=== PATIENT | female | born 1965 | race Two or more races ===

== ENCOUNTER 2022-03-09 11:32 | Emergency (ER) | payer OTHER ==
[~2022-03-09] VITALS: Ht 165.1 cm; Wt 81.6 kg
== END 2022-03-09 18:39 | disposition home or self-care (01) ==
LOC: ER 11:32
DX: S52.591A Other fractures of lower end of right radius, initial encounter for closed fracture (principal); W17.89XA Other fall from one level to another, initial encounter; Y93.89 Activity, other specified; Y92.018 Other place in single-family (private) house as the place of occurrence of the external cause; Z88.8 Allergy status to other drugs, medicaments and biological substances; S30.0XXA Contusion of lower back and pelvis, initial encounter; S50.11XA Contusion of right forearm, initial encounter

== ENCOUNTER 2022-03-11 12:46 | Emergency (ER) | payer OTHER ==
[~2022-03-11] VITALS: Ht 167.6 cm; Wt 81.6 kg
[2022-03-12] MEDS ORDERED: DUI500 PO (14:40)
[2022-03-12] MEDS ORDERED: PERCOCET 5-3251 EACH PO (14:40)
== END 2022-03-11 21:14 | disposition home or self-care (01) ==
LOC: ER 12:46
DX: S62.001A Unspecified fracture of navicular [scaphoid] bone of right wrist, initial encounter for closed fracture (principal); W18.30XA Fall on same level, unspecified, initial encounter; Y93.9 Activity, unspecified; Y92.89 Other specified places as the place of occurrence of the external cause; Y99.9 Unspecified external cause status; Z20.822 Contact with and (suspected) exposure to COVID-19; Z88.8 Allergy status to other drugs, medicaments and biological substances; Z72.0 Tobacco use

== ENCOUNTER 2022-03-12 10:45 | Day surgery (SDC) | payer OTHER ==
[2022-03-12] MEDS ORDERED: DUI500 PO (14:40)
[2022-03-12] MEDS ORDERED: PERCOCET 5-3251 EACH PO (14:40)
== END 2022-03-12 17:05 | disposition home or self-care (01) ==
LOC: CIR.AMB 10:45
PROVIDERS: ATTEND Orthopaedic Surgery
DX: S52.532A Colles' fracture of left radius, initial encounter for closed fracture (principal); Z88.8 Allergy status to other drugs, medicaments and biological substances; Z20.822 Contact with and (suspected) exposure to COVID-19
CPT/HCPCS: 20902; 25609; L8699